=== PATIENT | female | born 1990 | race Caucasian/White ===

== ENCOUNTER 2016-07-01 22:50 | Emergency (ER) | payer OTHER ==
[2016-07-01 22:55] VITALS: BP 132/69
== END 2016-07-01 23:34 | disposition left against medical advice (07) ==
LOC: ER 22:50
DX: Z53.21 Procedure and treatment not carried out due to patient leaving prior to being seen by health care provider (principal)

== ENCOUNTER 2019-02-16 21:36 | Emergency (ER) | payer OTHER ==
[2019-02-16 21:51] VITALS: BP 125/84
[2019-02-16] MEDS ORDERED: EMTRICITABINE/TENOFOVIR 200-300 MG TABLET PO ONE (22:40)
[2019-02-16] MEDS ORDERED: RALTEGRAVIR POTASSIUM 400 MG TABLET PO ONE (22:41)
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
== END 2019-02-16 23:42 | disposition home or self-care (01) ==
LOC: ER 21:36
DX: S71.132A Puncture wound without foreign body, left thigh, initial encounter (principal); W46.0XXA Contact with hypodermic needle, initial encounter; Y99.0 Civilian activity done for income or pay; F17.200 Nicotine dependence, unspecified, uncomplicated
CPT/HCPCS: 99282